=== PATIENT | female | born 1945 | race Caucasian/White ===

== ENCOUNTER → 2018-10-30 | Outpatient (CLI) | payer OTHER | LOC: BMCIMAGING 09:35 | PROVIDERS: ATTEND Orthopaedic Surgery | DX: M25.551 Pain in right hip (principal); M25.552 Pain in left hip; M16.0 Bilateral primary osteoarthritis of hip ==

== ENCOUNTER → 2018-11-13 | Outpatient (CLI) | payer OTHER | LOC: BMCIMAGING 09:33 | PROVIDERS: ATTEND Orthopaedic Surgery | DX: M25.551 Pain in right hip (principal); M25.552 Pain in left hip ==

== ENCOUNTER → 2018-12-26 | Outpatient (CLI) | payer OTHER | LOC: FIMAGING 12:15 | PROVIDERS: ATTEND Orthopaedic Surgery | DX: Z01.818 Encounter for other preprocedural examination (principal); M16.11 Unilateral primary osteoarthritis, right hip ==

== ENCOUNTER 2019-01-01 05:56 | Inpatient (IN) | payer OTHER ==
[2019-01-01] MEDS ORDERED: FAMOTIDINE 20 MG TAB PO ONE (06:12)
[2019-01-01] MEDS ORDERED: ACETAMINOPHEN 325 MG TAB PO ONE (06:12)
[2019-01-01] MEDS ORDERED: ceFAZolin 2 GM/DEXTROSE 100 ML IV ONE (06:12)
[2019-01-01] MEDS ORDERED: LR 1,000 ML IV ONE (06:13)
[2019-01-01] MEDS ORDERED: ACETAMINOPHEN 325 MG TAB ONE (06:19)
[2019-01-01] MEDS ORDERED: CEFAZOLIN 2 GM/DEXTROSE/100 ML BAG IV ONE (06:19)
[2019-01-01] MEDS ORDERED: FAMOTIDINE 20 MG TAB ONE (06:19)
--- NOTE | 2019-01-01 06:38 | PDHPUP ---
History & Physical Update H&P update statement: This history and physical update is based on an assessment of the patient which was completed after admission or registration (within 24 hours), but prior to the surgery/procedure. H&P update: no change in patient's condition since H&P completed
--- NOTE | 2019-01-01 06:39 | PDIAF ---
- Diagnosis Diagnosis: right hip djd Code Status: Full Code - Medication Management Discharge Medications: electronically signed and located in the Home Medication List. - Orders Services needed: Home Care, Physical Therapy Home Care Face to Face: I certify that this patient was under my care and that I had the required [id number] encounter meeting the encounter requirements on the discharge day. My findings support the fact that the patient is homebound as defined in Home Care Face to Face Continued: CMS Chapter 7 Medicare Benefits Manual 30.1.1 , The condition of the patient is such that there exists a normal inability to leave home and consequently, leaving home would require a considerable and taxing effort. Diet Recommendation: no restrictions on diet Diet Texture: Regular Texture Diet Additional Instructions: TOTAL JOINT ARTHROPLASTY DISCHARGE INSTRUCTIONS 1. Your surgeon follows the [facility] protocol for reducing your risk of DVT (blood clots) following surgery. Medication will be ordered to prevent blood clots. A sudden increase in calf pain and/or swelling could indicate a blood clot in your leg. If this occurs, please call your surgeon or his/her assistant track and field coach. An ultrasound of the leg may be necessary to diagnose a blood clot. If you have conditions that make you a higher risk for blood clots, your surgeon may use more aggressive ways to prevent them. Notify your surgeon if you think you are a high risk for blood clots. 2. Wear your white surgical stockings (ELVIN hose) for 2 weeks. This decreases your swelling and may help prevent blood clots. It is ok to remove ELVIN hose at night time to give your legs a break. 3. Swelling and bruising in the surgical leg is common. If you feel that it is excessive, please notify your surgeon. 4. Elevate your surgical leg with the ankle above the hip several times every day. Please keep the leg straight when you elevate by putting pillows under your foot. Do not put pillows under your knee. This will make being able to fully straighten more difficult. This is uncomfortable, but try to do it as much as possible. 5. For total knee replacements use compressive wrap on your knee for 3-5 days after surgery, then you can discontinue it. 6. Use a walker or crutches for 1-2 weeks. Progress your weight-bearing as tolerated. You may start to use a cane when you feel stable and safe. 7. You will receive physical therapy instructions in the hospital. Continue those exercises at home. There are additional exercises in the total joint booklet you were given before surgery. Outpatient physical therapy will begin 7- 10 days after surgery. Please schedule this in advance. 8. Use ice on your knee at least 3-5 times every day for 30 minutes. This helps reduce pain and swelling. Also use it at night before falling asleep. 9. Leave your surgical dressing in place for 2 weeks. Your dressing is water resistant, but not waterproof. Cover it with Saran Wrap or Xmrrz-u-Iqny before showering. You may shower as soon as you feel safe entering a shower. If you notice bleeding from your incision 2 or 3 days after surgery, please notify your surgeon. 10. Due to narcotics, decreased activity and altered diet, most patients experience constipation after surgery. Use tjvd-egt-jmisvew stool softeners while you are on narcotics. 11. You may drive a car when you are comfortable bearing weight, have good muscular control of your leg and are off narcotics. This usually occurs 2-4 weeks after surgery, depending on which leg was operated on. 12. If there are questions not addressed here, please refer the [facility] book given for more information. If you still have questions, please contact your surgeon s office. 13. If you have a life-threatening emergency, please call 911 and go to the emergency room immediately. For non-life threatening emergencies, please call your physicians office for advice before going to the emergency room. - Follow Up Care Current Providers and Referrals: Matt Iglesias DO [Primary Care Provider] - Matt Rios MD [Medical Doctor] -
[2019-01-01] MEDS ORDERED: ceFAZolin 1 GM/5 ML SYR ONE (06:55)
[2019-01-01] MEDS ORDERED: MIDAZOLAM 2 MG/2 ML VIAL IVP ONE (07:38)
--- NOTE | 2019-01-01 07:38 | PDANEPAE ---
ANE History of Present Illness rob ANE Past Medical History - Cardiovascular History Hx Hypertension: No Hx Arrhythmias: No Hx Chest Pain: No Hx Coronary Artery / Peripheral Vascular Disease: No Hx CHF / Valvular Disease: No Hx Palpitations: No - Pulmonary History Hx COPD: No Hx Asthma/Reactive Airway Disease: Yes Hx Recent Upper Respiratory Infection: No Hx Oxygen in Use at Home: No Hx Sleep Apnea: No Sleep Apnea Screening Result - Last Documented: Negative Pulmonary History Comment: asthma is better now- not currently on daily basis - Neurologic History Hx Cerebrovascular Accident: No Hx Seizures: No Hx Dementia: No - Endocrine History Hx Diabetes: No Hypothyroid: Yes Hyperthyroid: No Obesity: no Endocrine History Comment: hypothyroidism - Renal History Hx Renal Disorders: No - Liver History Hx Hepatic Disorders: No - Neurological & Psychiatric Hx Hx Neurological and Psychiatric Disorders: Yes Neurological / Psychiatric History Comment: hx of anxiety and depression- none recently - Cancer History Hx Cancer: Yes Cancer History Comment: skin ca - Congenital Disorder History Hx Congenital Disorders: No - GI History GERD: no Hx Gastrointestinal Disorders: Yes Gastrointestinal History Comment: IBS - Other Health History Other Health History: wears glasses. recently saw curriculum and assessment director and she has some spots from freezing - Chronic Pain History Chronic Pain: Yes (right hip, bilateral shoulders) - Surgical History Prior Surgeries: left RTC repair. cataract surgery. vein stripping for varicose veins- right leg only ANE Review of Systems Review of Systems: - Exercise capacity Exercise capacity: >=4 METS METS (RN): 3 METS ANE Patient History - Allergies Allergies/Adverse Reactions: shellfish derived Allergy (Verified 01/01/19 06:34) - Home Medications Home Medications: Acetaminophen [Tylenol ES 500 mg (*)] 500 mg PO Q6 PRN 12/04/18 [Last Taken 08/11] Albuterol [Proventil Inhaler HFA (*)] 1 - 2 puffs IH Q4H PRN 12/04/18 [Last Taken 2 Weeks Ago ~12/18/18] Ferrous Sulfate [Ferrous Sulf 325 MG (*)] 325 mg PO DAILY 12/04/18 [Last Taken 1 Week Ago ~12/25/18] Fluticasone Hfa 110 Mcg [Flovent 110 MCG Hfa MDI (*)] 1 puffs IH BID PRN [Last Taken 2 Weeks Ago ~12/18/18] Herbals/Supplements -Info Only 1 ea PO DAILY 12/04/18 [Last Taken 1 Week Ago ~] Ibuprofen/Diphenhydramine Cit [MOTRIN PM CAPLET] 1 each PO HS PRN 12/04/18 [ Last Taken 1 Week Ago ~12/25/18] Levothyroxine [Synthroid 25 mcg (*)] 25 mcg PO DAILY06 12/04/18 [Last Taken 09/11] Zolpidem Tartrate [Ambien 5MG (*)] 5 mg PO HS PRN 12/04/18 [Last Taken 2 Weeks Ago ~12/18/18] valACYclovir [Valtrex (*)] 500 mg PO MOTUWETHFRSA 12/04/18 [Last Taken 2 Days Ago ~12/30/18] - NPO status NPO Status: no food or drink >8 hours NPO Since - Liquids (Date): 01/01/19 NPO Since - Liquids (Time): 03:00 NPO Since - Solids (Date): 12/31/18 NPO Since - Solids (Time): 21:00 - Anes Hx Anes Hx: no prior problems - Smoking Hx Smoking Status: Never smoked - Family Anes Hx Family Hx Anesthesia Complications: none ANE Labs/Vital Signs - Vital Signs Blood Pressure: 138/61 Heart Rate: 68 Respiratory Rate: 16 O2 Sat (%): 98 Height: 160.02 cm Weight: 54.431 kg ANE Physical Exam - Airway Mallampati Score: Class 2 Mouth exam: normal dental/mouth exam - Pulmonary Pulmonary: no respiratory distress - Cardiovascular Cardiovascular: regular rate and rhythym - ASA Status ASA Status: II ANE Anesthesia Plan Anesthesia Plan: spinal
[2019-01-01] MEDS ORDERED: BUPIVACAINE 0.5% 30 ML SDV ONE (07:44)
[2019-01-01] MEDS ORDERED: BUPIVACAINE 0.25% 30 ML SDV ONE (07:45)
[2019-01-01] MEDS ORDERED: MIDAZOLAM 2 MG/2 ML VIAL ONE (07:45)
[2019-01-01] MEDS ORDERED: PROPOFOL/EMULSION 500 MG/50 ML BOTTLE IV ONE ×2 (07:46→09:44)
[2019-01-01] MEDS ORDERED: fentaNYL 100 MCG/2 ML INJ ONE (07:46)
[2019-01-01] MEDS ORDERED: LIDOCAINE 2% 2 ML INJ ONE (07:51)
[2019-01-01] MEDS ORDERED: TRANEXAMIC ACID 1,000 MG in NS 100 ML IV ONE (08:45)
[2019-01-01] MEDS ORDERED: ROPIVACAINE 0.2% 80 MG, EPINEPHrine 0.2 MG, KETOROLAC TROMETHAMINE 30 MG, morphINE 10 M... IU ONE (08:45)
[2019-01-01] MEDS ORDERED: ePHEDrine SULFATE 25 MG/5 ML SYR ONE (09:12)
[2019-01-01] MEDS ORDERED: LR 500 ML IV PRN (09:58)
[2019-01-01] MEDS ORDERED: NALOXONE HCL 0.4 MG/ML INJ IVP PRN (09:58)
[2019-01-01] MEDS ORDERED: fentaNYL 100 MCG/2 ML INJ IVP PRN (09:58)
[2019-01-01] MEDS ORDERED: ALBUTEROL 3 ML DEYVIAL IH PRN (09:58)
[2019-01-01] MEDS ORDERED: HYDROmorphONE/DILAUDID 2 MG/ML INJ IVP PRN (09:58)
[2019-01-01] MEDS ORDERED: ONDANSETRON 4 MG/2 ML VIAL IVP PRN ×2 (09:58→10:08)
[2019-01-01] MEDS ORDERED: PHENYLEPHRINE HCL 100 MCG/ML SYR IVP PRN (09:58)
[2019-01-01] MEDS ORDERED: TEMAZEPAM 15 MG CAP PO PRN (10:08)
[2019-01-01] MEDS ORDERED: PROMETHAZINE HCL 25 MG/ML INJ IVP PRN (10:08)
[2019-01-01] MEDS ORDERED: POLYETHYLENE GLYCOL 3350 17 GM PKT PO PRN (10:08)
[2019-01-01] MEDS ORDERED: BISACODYL 10 MG SUPP PR PRN (10:08)
[2019-01-01] MEDS ORDERED: METOCLOPRAMIDE 10 MG/2 ML VIAL IVP PRN (10:08)
[2019-01-01] MEDS ORDERED: LACTULOSE 20 GM/30 ML UDCUP PO PRN (10:08)
[2019-01-01] MEDS ORDERED: PROMETHAZINE HCL 25 MG SUPPR PR PRN (10:08)
[2019-01-01] MEDS ORDERED: ONDANSETRON DISINTEGRATING 4 MG TAB PO PRN (10:08)
[2019-01-01] MEDS ORDERED: DIPHENOXYLATE/ATROPINE LOMOTIL 1 TAB PO PRN (10:08)
[2019-01-01] MEDS ORDERED: diphenhydrAMINE 25 MG CAP PO PRN (10:08)
[2019-01-01] MEDS ORDERED: MAGNESIUM HYDROXIDE 30 ML UDCUP PO PRN (10:08)
--- NOTE | 2019-01-01 10:08 | POSTOPPROG ---
Post Op Note Date of Operation: 01/01/19 Surgeon: Matt Rios Warning Coordination Meteorologist: faby Anesthesiologist: juan david Anesthesia: Spinal Pre-op Diagnosis: right hip djd Post-op Diagnosis: same Indication: same Procedure: right rob Inf/Abcess present in the surg proc area at time of surgery?: No Depth: Deep Incisional (Fascial) EBL: 100-500
[2019-01-01] MEDS ORDERED: ZOLPIDEM TARTRATE 5 MG TAB PO PRN (10:09)
--- NOTE | 2019-01-01 10:16 | POSTANESTH ---
Post Anesthetic Evaluation Cardiovascular Status: Normal, Stable Respiratory Status: Normal, Stable Level of Consciousness/Mental Status: Can Participate in Eval Pain Control: Adequate, Prn Tx Ordered Nausea/Vomiting Control: Adequate, Prn Tx Ordered Complications Possibly Related to Anesthesia: None Noted
[2019-01-01] MEDS ORDERED: LR 1,000 ML IV SCH (10:30)
[2019-01-01] MEDS: oxyCODONE IR 5 MG TAB PO PRN ×4 (12:45→21:39)
[2019-01-01] MEDS: TRANEXAMIC ACID 650 MG TAB PO SCH ×2 (15:05→21:39)
[2019-01-01] MEDS: valACYclovir 500 MG TAB PO SCH (15:39)
[2019-01-01] MEDS: ceFAZolin 2 GM/DEXTROSE 100 ML IV SCH (16:59)
[2019-01-01] MEDS: CYCLOBENZAPRINE 10 MG TAB PO PRN (17:00)
[2019-01-01] MEDS: ACETAMINOPHEN 325 MG TAB PO SCH ×2 (17:00→21:38)
[2019-01-01] MEDS ORDERED: FLUTICASONE HFA 110 MCG MDI IH PRN (21:00)
[2019-01-01] MEDS: SENNOSIDES/DOCUSATE SODIUM TAB PO SCH (21:38)
[2019-01-01] MEDS: FAMOTIDINE 20 MG TAB PO SCH (21:38)
[2019-01-01] MEDS: ASPIRIN 325 MG TAB PO SCH (21:45)
[2019-01-02] MEDS: ceFAZolin 2 GM/DEXTROSE 100 ML IV SCH (00:29)
[2019-01-02] MEDS: ACETAMINOPHEN 325 MG TAB PO SCH ×2 (04:31→12:14)
[2019-01-02] MEDS: TRANEXAMIC ACID 650 MG TAB PO SCH (04:34)
[2019-01-02] MEDS ORDERED: LEVOTHYROXINE 25 MCG TAB PO SCH (06:00)
--- NOTE | 2019-01-02 06:49 | PDIAF ---
- Diagnosis Diagnosis: right hip djd Code Status: Full Code - Medication Management Discharge Medications: electronically signed and located in the Home Medication List. - Orders Services needed: Home Care, Physical Therapy Home Care Face to Face: I certify that this patient was under my care and that I had the required [id number]-[id number] encounter meeting the encounter requirements on the discharge day. My findings support the fact that the patient is homebound as defined in Home Care Face to Face Continued: CMS Chapter 7 Medicare Benefits Manual 30.1.1 , The condition of the patient is such that there exists a normal inability to leave home and consequently, leaving home would require a considerable and taxing effort. Diet Recommendation: no restrictions on diet Diet Texture: Regular Texture Diet Additional Instructions: TOTAL JOINT ARTHROPLASTY DISCHARGE INSTRUCTIONS 1. Your surgeon follows the [facility] protocol for reducing your risk of DVT (blood clots) following surgery. Medication will be ordered to prevent blood clots. A sudden increase in calf pain and/or swelling could indicate a blood clot in your leg. If this occurs, please call your surgeon or his/her medication assistant. An ultrasound of the leg may be necessary to diagnose a blood clot. If you have conditions that make you a higher risk for blood clots, your surgeon may use more aggressive ways to prevent them. Notify your surgeon if you think you are a high risk for blood clots. 2. Wear your white surgical stockings (ELVIN hose) for 2 weeks. This decreases your swelling and may help prevent blood clots. It is ok to remove ELVIN hose at night time to give your legs a break. 3. Swelling and bruising in the surgical leg is common. If you feel that it is excessive, please notify your surgeon. 4. Elevate your surgical leg with the ankle above the hip several times every day. Please keep the leg straight when you elevate by putting pillows under your foot. Do not put pillows under your knee. This will make being able to fully straighten more difficult. This is uncomfortable, but try to do it as much as possible. 5. For total knee replacements use compressive wrap on your knee for 3-5 days after surgery, then you can discontinue it. 6. Use a walker or crutches for 1-2 weeks. Progress your weight-bearing as tolerated. You may start to use a cane when you feel stable and safe. 7. You will receive physical therapy instructions in the hospital. Continue those exercises at home. There are additional exercises in the total joint booklet you were given before surgery. Outpatient physical therapy will begin 7- 10 days after surgery. Please schedule this in advance. 8. Use ice on your knee at least 3-5 times every day for 30 minutes. This helps reduce pain and swelling. Also use it at night before falling asleep. 9. Leave your surgical dressing in place for 2 weeks. Your dressing is water resistant, but not waterproof. Cover it with Saran Wrap or Zptmg-f-Lvtx before showering. You may shower as soon as you feel safe entering a shower. If you notice bleeding from your incision 2 or 3 days after surgery, please notify your surgeon. 10. Due to narcotics, decreased activity and altered diet, most patients experience constipation after surgery. Use bjbd-eck-ogjjjjt stool softeners while you are on narcotics. 11. You may drive a car when you are comfortable bearing weight, have good muscular control of your leg and are off narcotics. This usually occurs 2-4 weeks after surgery, depending on which leg was operated on. 12. If there are questions not addressed here, please refer the [facility] book given for more information. If you still have questions, please contact your surgeon s office. 13. If you have a life-threatening emergency, please call 911 and go to the emergency room immediately. For non-life threatening emergencies, please call your physicians office for advice before going to the emergency room. - Follow Up Care Current Providers and Referrals: Matt Iglesias DO [Primary Care Provider] - Matt Rios MD [Medical Doctor] -
--- NOTE | 2019-01-02 06:50 | SOAPPROG ---
SOAP Progress Note Assessment/Plan: Assessment: s/p right rob Plan: d/c home wbat dvt precautions reviewed f/u at two weeks\ seek attn for increasing complaints 01/02/19 06:49 Subjective: nausea yest no current nausea no cp or sob Objective: Vital Signs Temp Pulse Resp BP Pulse Ox 36.9 C 74 16 94/49 L 92 01/02/19 04:00 01/02/19 04:00 01/02/19 04:00 01/02/19 04:00 01/02/19 04:00 Laboratory Results 01/02/19 04:53 01/01/19 01/02/19 01/03/19 05:59 05:59 05:59 Intake Total 1960 Output Total 1590 Balance 370 dressing intact intact pf,df,ehl toes warm and pink neg homans hema xrays stable anatomic alignement ICD10 Worksheet Patient Problems: Problems Problem Status Onset Hip arthritis Acute - ICD10 Problem Qualifiers (1) Hip arthritis
[2019-01-02] MEDS: FAMOTIDINE 20 MG TAB PO SCH (08:45)
[2019-01-02] MEDS: ASPIRIN 325 MG TAB PO SCH (08:45)
[2019-01-02] MEDS: SENNOSIDES/DOCUSATE SODIUM TAB PO SCH (08:45)
[2019-01-02] MEDS ORDERED: FERROUS SULFATE 325 MG TAB PO SCH (09:00)
--- NOTE | 2019-01-02 10:15 | ASMTLACE ---
EDOUARDE Length of stay for Answers: 2 days current admission Acuity / Level of Answers: Yes Care: Did the patient have an inpatient admission? Comorbidities - select Answers: Opioid dependence all that apply / Chronic pain Other Notes: Hypothyroid # of Emergency department Answers: 0 visits in the last 6 months Social determinants Answers: Mental health diagnosis (anxiety, depression, pers onality disorders, etc.) Score: 13 Date Signed: 01/02/2019 10:15 AM Electronically Signed By:IVA Page
--- NOTE | 2019-01-02 10:17 | ASMTCMCOM ---
CM Note CM Note Notes: Pt had planned hip surgery. MD ordered HHC and pre-arranged [facility]. Pt does want HC and agrees to [facility], referral sent in [employer]. Krista with [facility] to meet with pt today. Date Signed: 01/02/2019 10:16 AM Electronically Signed By:IVA Page
[2019-01-02 11:14] VITALS: BP 99/50
[2019-01-02] MEDS: oxyCODONE IR 5 MG TAB PO PRN (12:13)
[2019-01-02] MEDS: valACYclovir 500 MG TAB PO SCH (12:13)
[2019-01-02] MEDS: CYCLOBENZAPRINE 10 MG TAB PO PRN (12:14)
--- NOTE | 2019-01-02 14:47 | GDS ---
[f rep st] DISCHARGE SUMMARY ADMIT DIAGNOSIS: Right hip degenerative joint disease. DISCHARGE DIAGNOSIS: Right hip degenerative joint disease. PROCEDURE: Right total hip arthroplasty. HISTORY OF PRESENT ILLNESS: iLly is a 73-year-old woman who has end-stage arthritis to her right hip. She presents today for elective total hip replacement. HOSPITAL COURSE: The patient was admitted overnight after an uncomplicated total hip arthroplasty. She did have several episodes of emesis postoperatively but quickly cleared otherwise. At the time o f discharge, she is tolerating an oral diet. Pain is well controlled on oral medicines. She is void ing without difficulty. Dressing is clean, dry, intact. There is no swelling or ecchymosis. Negati ve Homans and x-rays are stable with anatomic alignment. No fracture or lucency. DISCHARGE ACTIVITY: Weightbearing as tolerated. Anterior hip precautions daily. Keep the dressing intact. Seek attention for increasing redness, swelling, drainage, discharge, or other focal complai nts. FOLLOWUP: 2 weeks. DISCHARGE MEDICATIONS: Aspirin 325 mg p.o. daily. Oxycodone 5 mg 1-2 every 6 hours p.r.n. pain. /[id number]/MODL
--- NOTE | 2019-01-02 21:18 | GOP ---
[f rep st] OPERATIVE REPORT DATE OF OPERATION: 01/01/2019 SURGEON: Matt Rios MD PLANNING AIDE: Lalo Scott, orthopedic assistant who was a medical necessity for the entirety of the case . PREOPERATIVE DIAGNOSIS: Right hip degenerative joint disease. POSTOPERATIVE DIAGNOSIS: Right hip degenerative joint disease. PROCEDURE PERFORMED: Right total hip arthroplasty, anterior/MAKOplasty. FINDINGS: SPECIMENS: To Pathology, the femoral head. INDICATIONS: Lily is a 73-year-old woman with end-stage arthritis to her right hip. Clinical and radiographic features are consistent with this. She has failed all attempts at conservative manageme nt. I have, therefore, recommended operative intervention. I have outlined the surgical procedure, ri sks, benefits, and alternatives. She wished to proceed. Written consent was signed and placed in the patient's chart. DESCRIPTION OF PROCEDURE: Patient was identified in the preanesthesia area. The right hip clearly de marcated as the operative site with an indelible marker. She was given 2 g of Ancef intravenously in route to the operative suite. In the OR, a spinal anesthetic was placed. The patient was positioned i n the supine position. The pelvis and both lower extremities were sterilely prepped and draped in usu al fashion. Appropriate time-out procedure was carried out. Attention was first turned to the left hip and hemipelvis. A 2 cm incision was made. Three pins were then placed and the pelvic reference array affixed. Attention was turned to the right hip. An anterio r approach was made. Thick subcutaneous flaps were elevated. The fascia overlying the tensor was open ed in the origin of its fibers and the tensor muscle retracted laterally. The underlying vascular str uctures were identified, cauterized, and transected. The retractors were placed into an extracapsular position. T-capsulotomy was then made. Acetabular checkpoint was placed. Retractors were placed into an intracapsular position. A bony wedge was withdrawn, followed by removal of the femoral head. The remaining soft tissue contents were sharply excised. Using the MAKOplasty software, resections were m jazmin with a 46 mm reamer. A 46 mm acetabular shell was then impacted, confirmed to be fully seated. A 0-degree X3 liner was then placed with a 32 mm inner diameter, confirmed to be fully seated. Attention was turned to the femur, which was delivered through the use of soft tissue releases and ex tension of the table. The proximal canal was opened, broached to a size 3. A trial reduction with a s ize 3 stem, and ultimately, a 32 mm -4 mm neck length restored leg lengths, allowed full stability wi th full extension, external rotation to 90 degrees. The trial components were withdrawn. A size 3 destini m was impacted, confirmed to be fully seated. A 32 mm -4 mm Biolox head was then placed across the tr unnion. The hip was irrigated and reduced. It was stable and appropriate as previous. The tissue was injected with a joint cocktail of ropivacaine, Toradol, and epinephrine. Drain was then placed. The t ensor was then closed using 0 Vicryl, subcutaneous tissue using 2-0 Monocryl, and the skin stapled. A sterile dressing was applied. The patient was awakened, extubated, and taken to recovery room in goo d and stable condition. TOTAL TOURNIQUET TIME: None. COMPLICATIONS: None. IMPLANTS: The [place] Trident II acetabular shell, size 46 mm, Trident X3 0-degree polyethylene inse rt 32 mm, Accolate II 127 degree neck angle hip stem size 3, and a Biolox ceramic head, 32 mm, -4 mm neck length. /[id number]/MODL
--- NOTE | 2019-01-03 10:13 | ASDISCHSUM ---
Discharge Information Plan Status:Home with Home Health Medically Cleared to Leave: Discharge Date:01/02/2019 02:23 PM CM D/C Disposition: ADT D/C Disposition:Home Health Service Projected Discharge Date:01/02/2019 11:00 AM Transportation at D/C: Discharge Delay Reason: Follow-Up Date:01/02/2019 11:00 AM Discharge Slot: Final Diagnosis: Placement Information Referral Type:*Home Health Care Services Referral ID:[id number] Provider Name:[facility] ([facility] Address 1:[address] [address] Address 2: City:[place] Selection Factors: State:[place] Patient Contact Information Contact Name:CARLOS Relationship:Daughter Address: Home Phone: City: [facility] Phone: [facility] Code: Email: Financial Information Financial Class:Medicare Primary Plan Desc:MEDICARE INPATIENT Primary Plan Number:[id number] Secondary Plan Desc:[employer] Secondary Plan Number:[id number] Assessment Information LACE LACE Length of stay for Answers: 2 days current admission Acuity / Level of Answers: Yes Care: Did the patient have an inpatient admission? Comorbidities - select Answers: Opioid dependence all that apply / Chronic pain Other Notes: Hypothyroid # of Emergency department Answers: 0 visits in the last 6 months Social determinants Answers: Mental health diagnosis (anxiety, depression, pers onality disorders, etc.) Score: 13 Date Signed: 01/02/2019 10:15 AM Electronically Signed By:IVA Page [facility] CM Progress Note CM Note CM Note Notes: Pt had planned hip surgery. ordered HHC and pre-arranged [facility]. Pt does want HC and agrees to [facility], referral sent in [employer]. Krista with [facility] to meet with pt today. Date Signed: 01/02/2019 10:16 AM Electronically Signed By:IVA Page Intervention Information
== END 2019-01-02 14:23 | disposition home health service (06) | DRG 470 ==
LOC: F3N 05:56
PROVIDERS: ADMIT Orthopaedic Surgery; ATTEND Orthopaedic Surgery
DX: M16.11 Unilateral primary osteoarthritis, right hip (principal); J45.909 Unspecified asthma, uncomplicated; E03.9 Hypothyroidism, unspecified; F41.8 Other specified anxiety disorders; K58.9 Irritable bowel syndrome, unspecified; G89.29 Other chronic pain; Z85.820 Personal history of malignant melanoma of skin
CPT/HCPCS: 97110-GP; 97116-GP; 97161-GP; 97165-GO; 97530-GP; J0171; J0690; J1885; J2250; J2270; J2704; J2795; J3010

== ENCOUNTER → 2019-02-13 | Outpatient (CLI) | payer OTHER | LOC: BMCIMAGING 14:05 | PROVIDERS: ATTEND Physician Assistant | DX: Z09 Encounter for follow-up examination after completed treatment for conditions other than malignant neoplasm (principal) ==

== ENCOUNTER → 2019-02-21 | Outpatient (CLI) | payer OTHER | LOC: BMCIMAGING 10:20 | PROVIDERS: ATTEND Physician Assistant | DX: Z09 Encounter for follow-up examination after completed treatment for conditions other than malignant neoplasm (principal); Z96.641 Presence of right artificial hip joint ==

== ENCOUNTER → 2019-03-15 | Outpatient (CLI) | payer OTHER | LOC: BMCIMAGING 08:39 | PROVIDERS: ATTEND Orthopaedic Surgery | DX: Z09 Encounter for follow-up examination after completed treatment for conditions other than malignant neoplasm (principal); Z96.641 Presence of right artificial hip joint ==

== ENCOUNTER → 2019-03-29 | Outpatient (CLI) | payer OTHER | LOC: BMCIMAGING 07:22 ==